=== PATIENT | female | born 2000 | race Caucasian/White ===

== ENCOUNTER 2023-05-24 12:52 | Outpatient (CLI) | payer OTHER, SELFPAY ==
--- OUTSIDE RECORDS SUMMARY | 2023-05-24 12:56 | XMS_ITS | Patient Health Record ---
Author Name Unknown Organization [facility] S Address [address] [phone] Care Team Providers Care Tie Mill Operator Name Role Phone ONE TIME ONLY Primary Care Provider Unavailabl e REASON FOR REFERRAL No Information MEDICATIONS Medication SIG (Take, Route, Fr equency, Duration) Notes Start Date End Date Status ZyrTEC Allergy 10 MG 1 tab Oral qd Active Omeprazole 20 MG 1 cap(s) orally once a day for 30 day(s) Active Diflucan 150 MG 1 tab(s) orally once , may repeat in 1 week if needed. 06/03/2020 Acti ve IMMUNIZATIONS Vaccine Route Administration Date Status Comme nts DTaP (2 mos through 6 yrs) Unknown 2000 Administe red DTaP (2 mos through 6 yrs) Unknown 02/09/2001 Administe red DTaP (2 mos through 6 yrs) Unknown 04/19/2001 Administe red DTaP (2 mos through 6 yrs) Unknown 01/11/2002 Administe red DTaP (2 mos through 6 yrs) Unknown 03/04/2006 Administe red DTaP (2 mos through 6 yrs) Unknown 05/12/2013 Administe red Hepatitis A 12 mo through 18 yrs Unknown 2000 Adm inistered Hepatitis A 12 mo through 18 yrs Unknown 02/09/2001 Adm inistered Hepatitis A 12 mo through 18 yrs Unknown 04/19/2001 Adm inistered Hepatitis A 12 mo through 18 yrs Unknown 05/06/2011 Adm inistered Hib Unknown 2000 Administered Hib Unknown 2000 Administered Hib Unknown 01/11/2001 Administered Hib Unknown 02/09/2001 Administered Hib Unknown 04/19/2001 Administered IPV Unknown 2000 Administered IPV Unknown 02/09/2001 Administered IPV Unknown 04/19/2001 Administered IPV Unknown 01/10/2002 Administered MMR Unknown 03/04/2006 Administered Pneumococcal 13 (Prevnar) Unknown 02/09/2001 Administer ed Pneumococcal 13 (Prevnar) Unknown 04/19/2001 Administer ed Pneumococcal 13 (Prevnar) Unknown 07/12/2001 Administer ed Pneumococcal 13 (Prevnar) Unknown 04/11/2002 Administer ed Varicella Unknown 04/11/2002 Administered Varicella Unknown 05/19/2010 Administered SOCIAL HISTORY Tobacco Use: Social History Observation Description Date Smoking Status WARNING: Information temporarily unavailable Sex Assigned At : Social History Observation Description Sex Assigned At Unknown Tobacco Status Question Answer Notes I am: never smoker Do you use other forms of tobacco? No PLAN OF TREATMENT No Information Insurance Providers Payer Name Payer Address Payer Phone Subscriber Number Group Number Insured Name Patient Relationship to Insured Coverage Start Date Coverage End Date [facility] [address] [address] [place] [phone] [id number] 2S Jennifer Tena Self - patient is the insured 0 MEDICATIONS ADMINISTERED Medication Instructions Date of Administration Dosage Notes Rocephin (Ceftriaxone) 06/03/2020 250 mg
--- NOTE | 2023-05-24 13:00 | CRLHL7_ITS ---
For Patients: As a result of the Century Cures Act, medical imaging exams and procedure reports are released immediately into your electronic medical record. You may view this report before your referring provider. If you have questions, please contact your health care provider. INDICATION: Limited care COMPARISON: none TECHNIQUE: Real time hurley scale imaging of the fetus was performed. FINDINGS: Sonographic imaging demonstrates a single living intrauterine gestation. Fetus demonstrates a regular cardiac rate of 149 beats per minute. Fetus has a vertex position. The placenta lies anteriorly. Amniotic fluid volume appears normal and there is a single deepest vertical pocket: 5.4 cm. The estimated weight is 2381gm which lies at the 63rd %. BPD 80th percentile. HC 37th percentile. AC 86th percentile. FL 17th percentile. The HC/AC ratio measures 1.00 range (0.94-1.11). IMPRESSION: Sonographic gestational age 34 weeks 2 days and sonographic due date 07/03/2023. Sonographic age 5 days ahead of the clinical age. Estimated weight 63rd percentile. Abdominal circumference 86th percentile. Dictated by David Velazquez MD @ 05/25/2023 12:29:30 PM (Electronically Signed)
== END 2023-05-24 12:53 | disposition home or self-care (01) ==
LOC: US 12:54
PROVIDERS: PCP Family Medicine; Visit Provider Advanced Practice Midwife
DX: Z34.93 Encounter for supervision of normal pregnancy, unspecified, third trimester (principal); Z3A.34 34 weeks gestation of pregnancy
CPT/HCPCS: 76815; 80306; 86703; 86803; 86850; 86900; 86901; 87086; 87340; 87491; 87591

== ENCOUNTER 2023-05-24 14:31 | Outpatient (CLI) | payer OTHER, SELFPAY ==
[2023-05-24 22:25] LABS: Chlamydia DNA Amplified* NOT DETECTED (No Detected); GC DNA Amplified* NOT DETECTED (No Detected)
== END 2023-05-24 14:32 | disposition home or self-care (01) ==
PROVIDERS: PCP Family Medicine; Visit Provider Advanced Practice Midwife
DX: Z34.93 Encounter for supervision of normal pregnancy, unspecified, third trimester (principal); Z3A.33 33 weeks gestation of pregnancy
CPT/HCPCS: 80306; 86592; 86703; 86762; 86787; 86803; 86850; 86900; 86901; 87086; 87340; 87491; 87591

== ENCOUNTER 2023-06-03 08:02 | Outpatient (CLI) | payer OTHER, SELFPAY ==
--- OUTSIDE RECORDS SUMMARY | 2023-06-05 10:55 | XMS_ITS | Patient Health Record ---
Author Name Unknown Organization [facility] S Address [address] [phone] Care Team Providers Care Draw Press Operator Name Role Phone ONE TIME ONLY [...] Insured Coverage Start Date Coverage End Date [facility] [address] [address] [place] [address] [id number] 2S Jennifer Tena Self - patient is the insured 0 MEDICATIONS ADMINISTERED Medication Instructions Date of Administration Dosage Notes Rocephin (Ceftriaxone) 06/03/2020 250 mg
== END 2023-06-03 08:03 | disposition home or self-care (01) ==
LOC: NFLDREF 06-05 10:54
PROVIDERS: PCP Family Medicine; Referring Provider Family Medicine; Visit Provider Advanced Practice Midwife
DX: Z34.90 Encounter for supervision of normal pregnancy, unspecified, unspecified trimester (principal)
CPT/HCPCS: 82951; 82952

== ENCOUNTER 2023-06-29 11:30 | Outpatient (CLI) | payer OTHER, SELFPAY ==
--- OUTSIDE RECORDS SUMMARY | 2023-07-01 12:15 | XMS_ITS | Patient Health Record ---
Author Name Unknown Organization [facility] S Address [address] [phone] Care Team Providers Care Air Tool Operator Name Role Phone ONE TIME ONLY [...] Insured Coverage Start Date Coverage End Date [facility] [address] [address] [place] [phone] [id number] 2S Jennifer Tena Self - patient is the insured 0 MEDICATIONS ADMINISTERED Medication Instructions Date of Administration Dosage Notes Rocephin (Ceftriaxone) 06/03/2020 250 mg
== END 2023-06-29 11:31 | disposition home or self-care (01) ==
LOC: NFLDREF 07-01 12:14
PROVIDERS: PCP Family Medicine; Referring Provider Family Medicine; Visit Provider Advanced Practice Midwife
DX: O09.33 Supervision of pregnancy with insufficient antenatal care, third trimester (principal); Z3A.38 38 weeks gestation of pregnancy
CPT/HCPCS: 87081; 87653

== ENCOUNTER 2023-07-19 12:53 | Inpatient (IN) | payer OTHER, SELFPAY ==
[2023-07-19] VITALS (47 sets, daily range): BP systolic 107–143; BP diastolic 55–95; PULSE 53–90; RESP 16; TEMP 36.7–36.8; O2SAT 85–100; BMI 29.8
--- OUTSIDE RECORDS SUMMARY | 2023-07-19 12:56 | XMS_ITS | Patient Health Record ---
Author Name Unknown Organization [facility] S Address [address] [phone] Care Team Providers Care Beveler Name Role Phone ONE TIME ONLY Primary [...] Insured Coverage Start Date Coverage End Date [facility] [address] [address] [place] [address] [id number] 2S Jennifer Tena Self - patient is the insured 0 MEDICATIONS ADMINISTERED Medication Instructions Date of Administration Dosage Notes Rocephin (Ceftriaxone) 06/03/2020 250 mg
--- NOTE | 2023-07-19 14:34 | P.LDBA_ITS ---
Subjective History of Present Illness Date Seen: 07/19/23 Narrative: Patient is being admitted to Labor and Delivery for postdates induction. She is a 22 year old at 41.0 weeks gestation. Her full history and physical was dictated by Talisha Saeed CNM on 06/29/23. Please see this for details. On cervical exam she was 3-4/90%/-1. Options were reviewed including Cytotec, Pitocin, and AROM. She would like to proceed with Pitocin induction and may consider AROM augmentation if needed. She states that she will likely opt for an epidural for pain management. Specific Issues/Plans : Jaden Will decline blood transfusion d/t covid vaccination except in emergency 06/29 H & P done by Talisha Saeed 1. Late and limited PNC (33.2 weeks) 05/24 UDS neg 2. Smoker 3. Hx herpes. Has had 2 outbreaks in . Has Valtrex prescription. 4. Hx of depression. feels it was situational. 5. FOB's nephew has downs syndrome. [id number]: neg 6. Abnormal 1 hr (160). Passed 3 hour (3/4 numbers) COVID: declines Flu: TDAP: 32wk Mental Health: 05/24/2023 OB - Problem Based A/P Additional Plan (1) Encounter for induction of labor: Status: Acute (2) Limited care: Status: Acute (3) Late care: Status: Acute (4) Smoking: Status: Acute (5) Genital herpes: Status: Acute Plan ASSESSMENT:? at 41.0 weeks gestation? GBS negative? Uncomplicated ? Postterm IOL? ?? PLAN:? 1. Reviewed risks and benefits of IOL with pitocin vs cytotec vs AROM. Pt prefers Pitocin. AROM augmentation if needed.? 2. Candidate for analgesia of choice. Planning epidural. Can get epidural when desires.? 3. Anticipate ? 4. Place IV 5. Continuous monitoring per Pitocin protocol.? Delivery/Labor/Induction Plan Plan: induction Induction method: per pitocin protocol OB Result Labs Blood Type: A (+) positive GBS Status: negative OB Exam Physical Exam Vital signs: Temp Pulse Resp BP Pulse Ox 98.2 F 74 16 124/92 H 99 07/19/23 13:09 07/19/23 13:09 07/19/23 13:09 07/19/23 13:09 07/19/23 13:10 Narrative: Psychiatric:? Alert and oriented x3? HEENT:? Normocephalic, atraumatic? Neck:? Supple without adenopathy or thyromegaly? Lungs:? Clear to auscultation bilaterally? Heart:? Regular rate and rhythm, no murmur, rub or gallop? Abdomen:? Soft, nontender, and gravid? Extremities:? No edema or erythema? Detailed Labor and Delivery Exam Patient Gravid: Yes Dilation (cm): 4 Effacement (%): 90 Cervix position: mid Contraction Frequency: irregular Tachysystole: No Contraction intensity: Mild Fetus (Single) Station: -1 Amniotic Membrane Status: intact Heart Rate Baseline: 140 Monitor Accelerations: Present Monitor Decelerations: None Invoicing Machine Operator Variability: Moderate (6-25) (periods of minimal variability )
[2023-07-19] MEDS: OXYTOCIN 30 unit/500 ML in NS 30 UNIT/500 ML BAG IVPB (15:14)
[2023-07-19] MEDS: LACTATED RINGERS 1000 ML 1,000 ML 124 ML IV (15:14)
--- NOTE | 2023-07-19 17:30 | P.OBPN_ITS ---
Subjective Date Seen: 07/19/23 Narrative: Jennifer has been on IV Pitocin titration for about 2 hours now. She is feeling some tightening but not having any pain with contractions. Reviewed options of continuing with Pitocin titration or augmenting with AROM. Risks of AROM reviewed. She would like to proceed with AROM at this time. Scant amount of clear fluid mixed with bloody show noted with rupture. Objective Vital Signs: Last Vital Signs Temp 98.2 F 07/19/23 13:09 Pulse 67 07/19/23 16:54 Resp 16 07/19/23 13:09 BP 123/80 07/19/23 16:54 Pulse Ox 99 07/19/23 13:10 Pelvic Exam Dilation (cm): 4 Effacement (%): 90 Station: -1 Contractions Monitor mode: External Contraction Frequency: 2-7 Contraction pattern: Irregular Contraction intensity: Mild Assessment Assessment: induction ongoing Station: -1 Amniotic Membrane Status: AROM Status: Category l Heart Rate Baseline: 130 Nursing Home Variability: Moderate (6-25) Monitor Accelerations: Present Monitor Decelerations: None Plan Plan: Continue with Pitocin titration. AROM with clear fluid. Anticipate NVD.
[2023-07-19] MEDS: LIDOCAINE 2% (PF) 5 ML VIAL EPIDURAL (18:03)
[2023-07-19] MEDS: ROPIVACAINE 0.2% 100 ml 100 ML 12 MG EPIDURAL (18:28)
[2023-07-19] MEDS: fentaNYL 250 MCG/5 ML inj 100 MCG EPIDURAL (18:30)
--- NOTE | 2023-07-19 18:42 | PM.ANBPRC ---
[facility] Medical History Family history of Downs syndrome ?Z82.79 - Family history of other congenital malformations, deformations and chromosomal abnormalities (ICD-10) Depression ?F32.A - Depression, unspecified (ICD-10) Genital herpes ?A60.00 - Herpesviral infection of urogenital system, unspecified (ICD-10) Complete molar ?O02.0 - Blighted ovum and nonhydatidiform mole (ICD-10) Surgical History H/O dilation and curettage ?Z98.890 - Other specified postprocedural states (ICD-10) Family History Maternal Grandmother Thyroid disease Osteoporosis Endometriosis Maternal Grandfather Thyroid disease High blood pressure Paternal Grandmother Diabetes Family/Other Coagulation disorder Sister Thyroid disease Social History Narrative: SOCIAL Education: high school Work: unemployed Partner: Abdias Morales - but not changed name yet: [employer]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 Culture or yazdanism beliefs: denies RISK FACTORS Exercise Times/wk: house work Depression/Anxiety: situational with molar SARAH: 2 PHQ 9: 5 Seat Belt Use: Routinely Smoking: pack per day Alcohol/day: Denies while Caffeine: occasionally Drug Use: Denies present, high school used THC Chicken Pox: vaccinated MRSA: Denies What is your current living situation?: I presently have a place to live Problems where you live: no known problems In the past 12 months, utilities in danger of being shut off: no In past 12 months, lack of transportation kept you from medical appts, meetings, work, or getting things needed for daily living: no In the past 12 mos, have been you worried that your food would run out before you had money to buy more?: never true In the past 12 mos, the food you bought just didn't last and you didn't have money to buy more?: never true Smoking Status: Current every day smoker How often does anyone, including family, friends and others, physically hurt you: never How often does anyone, including family, friends and others, insult or talk down to you: never How often does anyone, including family, friends and others, threaten you with harm: never How often does anyone, including family, friends and others, scream or curse at you: never Little interest or pleasure in doing things: several days Feeling down, depressed, or hopeless: not at all Meds Home Medications and Allergies Home Medications Medication Instructions Recorded Confirmed Type cetirizine 10 mg tablet (Zyrtec) 10 mg PO QDAY PRN 08/06/22 07/19/23 History Allergies Allergy/AdvReac Type Severity Reaction Status Date / Time No Known Drug Allergies Allergy Verified 07/16/23 09:50 Results Vital Signs Vital Signs: Last Vital Signs Temp 98.2 F 07/19/23 13:09 Pulse 70 07/19/23 18:40 Resp 16 07/19/23 13:09 BP 107/59 L 07/19/23 18:40 Pulse Ox 99 07/19/23 18:40 Weight: 89.046 kg Height: 172.72 cm Anesthesia Procedures Epidural Insertion Patient Location: OB Start Time: 18:00 Stop Time: 19:00 Start Date: 07/19/23 Stop Date: 07/19/23 Reason for Block: primary anesthetic Patient Position: sitting Performed By: Kurtis Palma Preanesthetic Checklist: IV checked, risks and benefits discussed, surgical consent, monitors and equipment checked, pre-op evaluation, timeout performed and anesthesia consent Prep: chlorhexidine gluconate Monitoring: blood pressure monitoring, lunchroom monitor, continuous pulse oximetry and heart rate Approach: midline Vertebral Space: lumbar (1-5) Needle Type: Tuohy needle Injection Technique: continuous catheter Needle gauge: 17 Needle Length (cm): 10 cm Needle Insertion Depth (cm): 6 Catheter Gauge: 19 Catheter Type: multi-orifice Catheter at skin depth (cm): 12 Test Dose Result: negative and lidocaine 1.5% with epinephrine 1 to 200,000 Events: other
[2023-07-19] MEDS: LACTATED RINGERS 1000 ML 1,000 ML 121 ML IV (19:16)
[2023-07-19] MEDS: OXYTOCIN 30 unit/500 ML in NS 30 UNIT/500 ML BAG 300 UNIT IVPB (21:13)
--- NOTE | 2023-07-19 22:03 | W.PM.VAGDE_ITS ---
OB Procedure Vag Delivery Mother Details Mother Details: The patient is a 22 year-old, 2, Para 0, admitted on 07/19/23 at 41.0 weeks gestation. : 2 Para: 1 Weeks Gestation: 41.0 Admission Date: 07/19/23 Additional Details Amniotic Membrane Status: AROM Amniotic Membrane Rupture Date: 07/19/23 Amniotic Membrane Rupture Time: 17:13 Amniotic Membrane Fluid Description: Clear Analgesia/Anesthesia Type: Epidural Waterbirth: No Pitcoin: Yes Intrapartal Events: Labor Induction Induction Method: per pitocin protocol Delivery augmentation: rupture of membranes Labor Onset: 17:13 Complete: 20:15 Pushin:15 Heart: heart tones during second stage were category II. Baseline 125 with accels, intermittent variable decels and moderate variability. Delivery Details Delivery Date: 07/19/23 Delivery Time: 21:11 Route of delivery: Infant Gender: Female Infant Viability: Alive; Heart Rate Present Position at Delivery: OA Delivery Details: Patient was admitted for postdates IOL and was induced with IV pitocin titration and augmentated with AROM. AROM noted at 1713 with clear fluid. Patient was complete at 2014 and pushing at 2014. of a viable female at 2110. Vertex d elivered OA. No shoulder. Loose nuchal cord x1 easily reduced on the perineum. Body delivered easily and without incident. Infant passed to mothers abdomen with a vigorous cry. Cord was clamped and cut at > 5 minutes. APGARS were 7 at one minute and 9 at five minutes respectively. Mouth was bulb suctioned. Intact placenta with a 3 vessel cord delivered spontaneously at 2118 with trailing membranes. The membranes did tear and a manual removal was attempted. Some membranes were removed with this but it was felt that there was still some remaining. Dr. Wright was called to evaluate and she did find some membranes but no additional retained products. Fundus firm with massage but did continue to have oozing with every funadal massage. She had pitocin running and was given rectal cytotec and IV TXA before the bleeding remained at an acceptable. 1st laceration identified and not repaired after shared decision making. It was hemostatic and well approximated. QBL 520 cc. Mother and baby stable; mother plans to breastfeed. Infant weight 8lb 13oz.? 1 Minute Interval Total Score: 7 5 Minute Interval Total Score: 9 Additional Details Shoulder Dystocia: No Placenta Delivery Time: 21:19 Placental Delivery Description: Spontaneous (manual exploration for questionable retained membranes, abx ordered.) Procedure Done: Global Blood Loss: 520 Laceration: Perineal - 1st Degree (not repaired) Episiotomy Description: None Blood Loss Measurement Type: QBL Bakri Used: No Sponge/Need Count Correct: Yes Cord Vessel Description: 3 Vessels, Nuchal Cord, Loose and Reduced Event Summary Status: Mother and infant were stable after delivery. Disposition: floor
--- NOTE | 2023-07-19 22:29 | PM.OBCN1 ---
OB - CN: HPI Date of Consult Date Seen: 07/19/23 Patient: [facility] Patient Consult date: 07/19/23 Requesting Physician: Grace Cao CNM Primary Care Provider: Melani Salinas MD Consult Narrative Narrative: The patient is a 22 year old now P1 woman who is s/p at 41 weeks gestation. She had spontaneous delivery of the placenta, then was noted to have trailing membranes. Grace Cao CNM, attended her , and was unable to remove the membranes. The placenta itself appeared intact. She then consulted me for removal. At the time that I examined the patient, she was less than our from placental delivery. She was having an appropriate amount of bleeding. She does have an epidural for pain control. She has already her daughter. History History 2 Elective abortions Para 0 Spontaneous abortions Hx # Term Pregnancies Ectopic pregnancies Hx # Pregnancies Multiple births Number of Living Children 0 Past Pregnancies Del. Date GA/Weeks Outcome Route wt Inf Gender Labor Lgth Anesthesia Location Provider Compli Unknown Delivery Date: Last Updated by: Grace Cao CNM M[place] in 2018; D&C Labs Blood type: A (+) positive GBS status: negative OB Labs: Lab Assessment Start: 07/19/23 13:27 Freq: ONCE Status: Active Protocol: PC.OBGBS Activity Type Activity Date Activity User E-sign Co-sign Detail Recorded Client Recorded Date Recorded By Document 07/19/23 13:31 MELINA [id number] 07/19/23 13:32 MELINA 07/19/23 13:31 Lab Assessment GBS Status negative GBS Additional Criteria None Is Patient Allergic to Penicillin? No No Treatment Needed OK Are Labs Available Yes Maternal Blood Type A Maternal RH Factor Positive Evaluate Maternal Rubella Immune Status Immune Hepatitis B Surface Antigen Negative Maternal HIV Status Negative Maternal Syphillis (RPR) Status Negative [facility] Medical History Family history of Downs syndrome ?Z82.79 - Family history of other congenital malformations, deformations and chromosomal abnormalities (ICD-10) Depression ?F32.A - Depression, unspecified (ICD-10) Genital herpes ?A60.00 - Herpesviral infection of urogenital system, unspecified (ICD-10) Complete molar ?O02.0 - Blighted ovum and nonhydatidiform mole (ICD-10) Surgical History H/O dilation and curettage ?Z98.890 - Other specified postprocedural states (ICD-10) Family History Maternal Grandmother Thyroid disease Osteoporosis Endometriosis Maternal Grandfather Thyroid disease High blood pressure Paternal Grandmother Diabetes Family/Other Coagulation disorder Sister Thyroid disease Social History Narrative: SOCIAL Education: high school Work: unemployed Partner: Abdias Morales - but not changed name yet: [employer]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 Culture or oriental orthodox beliefs: denies RISK FACTORS Exercise Times/wk: house work Depression/Anxiety: situational with molar SARAH: 2 PHQ 9: 5 Seat Belt Use: Routinely Smoking: pack per day Alcohol/day: Denies while Caffeine: occasionally Drug Use: Denies present, high school used TH[employer] Chicken Pox: vaccinated MRSA: Denies What is your current living situation?: I presently have a place to live Problems where you live: no known problems In the past 12 months, utilities in danger of being shut off: no In past 12 months, lack of transportation kept you from medical appts, meetings, work, or getting things needed for daily living: no In the past 12 mos, have been you worried that your food would run out before you had money to buy more?: never true In the past 12 mos, the food you bought just didn't last and you didn't have money to buy more?: never true Smoking Status: Current every day smoker How often does anyone, including family, friends and others, physically hurt you: never How often does anyone, including family, friends and others, insult or talk down to you: never How often does anyone, including family, friends and others, threaten you with harm: never How often does anyone, including family, friends and others, scream or curse at you: never Little interest or pleasure in doing things: several days Feeling down, depressed, or hopeless: not at all Meds Home Medications and Allergies Home Medications Medication Instructions Recorded Confirmed Type cetirizine 10 mg tablet (Zyrtec) 10 mg PO QDAY PRN 08/06/22 07/19/23 History Allergies Allergy/AdvReac Type Severity Reaction Status Date / Time No Known Drug Allergies Allergy Verified 07/16/23 09:50 OB - H&P: Exam Physical Exam: Vital signs: Temp Pulse Resp BP Pulse Ox 98.2 F 54 L 16 125/79 89 07/19/23 13:09 07/19/23 22:20 07/19/23 13:09 07/19/23 22:20 07/19/23 19:36 Narrative: Physical exam: Vitals as noted above. General: No acute distress, trembling consistent with early state Psych: Alert and oriented x 3, full affect HEENT: Normocephalic, atraumatic Abdomen: Fundus is firm Pelvic exam: Small first-degree left sulcal laceration. Procedure: Manual extraction of placental membranes A for oblique explained the exploration of the cervix and uterus the patient, and verbal consent was obtained. Sterile gloves were used for this procedure. A speculum was placed. Ring forceps were used to follow around the entire circumference of the cervix. No membranes were easily visualized, though blood was obscuring the view at times. Then, with a hand on the fundus through the maternal abdomen, I inserted my hand into the lower uterine segment and palpated circumferentially. I was able to find a very small piece of placental membranes in the upper endocervix or lower uterine segment. Uterine tone was excellent. OB - CN: A/P Assessment and Plan (1) Retained placenta or membranes: Status: Acute Assessment and Plan: Very small amount of membranes were manually removed. I did not explore the uterus to the level of the fundus, given the excellent uterine tone and the complete appearance of the placental disc. I did recommend continued monitoring of maternal bleeding and cefazolin for prophylaxis against infection.
[2023-07-19] MEDS: CEFAZOLIN 1 GM inj IVP (22:44)
[2023-07-19] MEDS: TRANEXAMIC ACID 100 MG/ML INJ 1000 MG IV (22:49)
[2023-07-19] MEDS: miSOPROStoL 800 MCG/4 TABLET PR (22:49)
[2023-07-20] MEDS: IBUPROFEN 600 MG TABLET PO ×3 (01:37→19:21)
[2023-07-20 04:01] VITALS: BP 116/73; PULSE 66; RESP 16; TEMP 37.1; O2SAT 99
[2023-07-20] MEDS: ACETAMINOPHEN 500 MG TABLET 1000 MG PO ×2 (04:29→10:15)
[2023-07-20 07:58] LABS: Hemoglobin* 7.1 gm/dL (12.0-16.0)
--- NOTE | 2023-07-20 07:59 | P.OBPN_ITS ---
OB - PN:Subj Subjective Date Seen: 07/20/23 Patient comments OB post-: no complaints Narrative: Jennifer is a 22 y.o. who was admitted to [facility] for induction of labor for post dates. ?She had a NVD complicated by retained membranes, manually removed.?The patient feels well. The pain is well controlled with current medications. ?She has no new complaints. ?She is breast feeding and reports things are going well.? the patient has done well.? Vitals have been stable.? She has remained afebrile.? Has a good appetite, is tolerating a general diet. ?She is voiding without difficulty.? She is passing gas and has not had a bowel movement.? She is ambulating and denies any dizziness.?Hemoglobin this morning is 7.1. Patient currently asymptomatic. Has small amount of rubra lochia. OB - PN: Obj Exam 2 Physical Exam: Vital signs: Temp Pulse Resp BP Pulse Ox O2 Del Method 98.8 F 66 16 116/73 99 Room Air 07/20/23 04:01 07/20/23 04:01 07/20/23 04:01 07/20/23 04:01 07/20/23 04:01 07/20/23 04:01 Narrative: GENERAL APPEARANCE:? normal affect, alert, no distress MOOD:? appropriate CHEST:? clear to auscultation HEART:? regular rate and rhythm ABDOMEN:? soft, non-tender the uterine fundus is at Umbilicus, Midline and is appropriate for the stage of recovery. PERINEUM:? mild edema of the perineum, there is a Perineal Laceration,?1st degree that is healing well. Small amount of rubra lochia. EXTREMITIES:? normal and no edema Hgb 7.1 gm/dL (12.0-1 6.0) L* 07/20/23 07:48 OB - PN: Obj Data Labs Labs: Laboratory Results - last 24 hr 07/20/23 07:48 Hgb 7.1 L* OB - PN: A/P Delivery Assessment and Plan (1) care and examination immediately after delivery: Status: Acute (2) Lactating mother: Status: Acute (3) Retained placenta or membranes: Status: Acute (4) Normal vaginal delivery: Status: Acute (5) Anemia due to acute blood loss: Status: Acute Plan Comments: Problems: Anemia plan: Routine care , may see if needed Anemia. Hgb 7.1. Iron supplement ordered orally every other day. Continue to monitor for symptoms. Bleeding is appropriate at this time. Anticipate discharge tomorrow.
[2023-07-20] MEDS: DOCUSATE SODIUM 100 MG CAPSULE PO (08:37)
[2023-07-20 09:19] VITALS: BP 105/69; PULSE 62; RESP 20; TEMP 36.6; O2SAT 97
[2023-07-20] MEDS: FERROUS SULFATE 325 MG TABLET PO (09:26)
[2023-07-20 11:59] VITALS: BP 105/68; PULSE 68; RESP 20; TEMP 36.8; O2SAT 98
[2023-07-20 15:45] VITALS: BP 110/72; PULSE 70; RESP 18; O2SAT 98
[2023-07-20 19:00] VITALS: BP 115/81; PULSE 70; RESP 18; TEMP 36.8; O2SAT 98
[2023-07-21 03:30] VITALS: BP 112/74; PULSE 69; RESP 18; TEMP 36.8; O2SAT 97
[2023-07-21 08:13] VITALS: BP 117/79; PULSE 67; RESP 16; TEMP 36.9; O2SAT 98
[2023-07-21] MEDS: IBUPROFEN 600 MG TABLET PO (08:28)
--- NOTE | 2023-07-21 09:57 | P.DS_ITS ---
DS: Providers Provider Date Seen: 07/21/23 Date of admission: 07/19/23 12:53 Primary care physician: Melani Salinas MD Admitting Clinician: Grace Cao CNM Attending Physician on discharge: Dong Apple CNM Date of Discharge: 07/21/23 DS: Diagnosis Discharge Diagnosis (1) care and examination immediately after delivery: Status: Acute (2) Lactating mother: Status: Acute Exam Narrative: Exam Narrative: GENERAL APPEARANCE: ?normal affect, alert, no distress MOOD: ?appropriate HEENT: normocephalic, neck supple, full ROM CHEST: ?Symmetrical chest wall movement. ?Normal respiratory effort. ?Clear to auscultation HEART: ?regular rate and rhythm ABDOMEN: ?soft, non-tender. Uterine fundus is firm, at Umbilicus, Midline and is appropriate for the stage of recovery. ?Bowel sounds present. PERINEUM: ?mild edema of the perineum, there is a 1st degree laceration that is healing well. EXTREMITIES: ?normal and no edema Const: Vital Signs, click to edit/add: Vital Signs - 24 hr 07/20/23 11:59 07/20/23 15:45 07/20/23 19:00 Temperature 98.2 F 98.2 F Pulse Rate [Blood Pressure Cuff] 68 70 70 Respiratory Rate 20 18 18 Blood Pressure [Le ft Arm] 105/68 110/72 115/81 Pulse Oximetry 98 98 98 Oxygen Delivery Me thod Room Air Room Air Room Air 07/21/23 03:30 07/21/23 08:13 Temperature 98.3 F 98.4 F Pulse Rate [Blood Pressure Cuff] 69 67 Respiratory Rate 18 16 Blood Pressure [Le ft Arm] 112/74 117/79 Pulse Oximetry 97 98 Oxygen Delivery Me thod Room Air Room Air Documenting provider has reviewed patient's vital signs: yes OB - DS: Summary Hospital Course Hospital Course: The patient is a 22 year old G 2 P 1 at 41.0 weeks gestation that was admitted to the Center on 07/19/23 for induction of labor. She had an uncomplicated vaginal delivery. She delivered a viable female infant. She is breast feeding. the patient has done well. Her pain is well controlled with current medications.? She has no new complaints.? Vitals have been stable. She has remained afebrile. She is voiding without difficulty. She is passing gas and has had a bowel movement. She is ambulating and denies any dizziness. She is unsure what she is planning for control.??? Peripartum Data delivery method: Vaginal Laceration description: Perineal - 1st Degree complications: none Infant Gender: Female Infant Discharge Plan: Home Status at Discharge Functional status at discharge: independent ambulation Overall status at discharge: patient is progressing back to baseline Time Spent with Patient Time attestation: Total time spent providing and/or coordinating discharge services: Time spent: Less than 30 minutes Discharge Plan Discharge Disposition: Home, Self-Care Date of Admission: 07/19/23 12:53 Attending Provider on Discharge: Dong Apple Primary Care Provider: Melani Salinas Condition: Stable Anticipated Discharge Date/Time: 07/21/23 12:00 Discharge Medications: New docusate sodium 100 mg Capsule 100 mg PO DAILY Qty: 60 0RF Rx Instructions: Take 1-2 tablets daily as needed for constipation. ferrous sulfate 325 mg (65 mg iron) Tablet 325 mg PO Q OTHER DAY Qty: 90 0RF ibuprofen 600 mg Tablet 600 mg PO Q6H PRNQty: 60 0RF Continued cetirizine [Zyrtec] 10 mg tablet 10 mg PO QDAY PRN Discontinued valacyclovir [Valtrex] 500 mg tablet 500 mg PO BID Qty: 60 1RF Discharge Orders: Discharge Order (Routine); Ordered 07/21/23 Ordered By: Dong Apple Patient Education: OB Over the Counter Medication Information, OB Vaginal/Breast Feeding Additional Instructions: Discharge instructions were reviewed with the patient including signs and symptoms of infection and home going medications Nothing vaginally for 6 weeks: no tampons or intercourse Do not drive while taking narcotic pain medication(s) Off Work or School for 6 weeks 2-week visit: discuss infant feeding concerns, review control options and screen for anxiety/depression. 6-week visit for an annual exam. consultation services are available to all mothers and babies for the first year after delivery.? To make an appointment, please call [phone]. Activity Level: Activity as Tolerated Discharge Diet: Regular Follow Up Appointments: [facility] [Provider Group] Forms: [employer] Info Instructions
== END 2023-07-21 12:00 | disposition home or self-care (01) | DRG 806 ==
PROVIDERS: Admitting Provider Advanced Practice Midwife; PCP Family Medicine; Visit Provider Advanced Practice Midwife
DX: O48.0 Post-term pregnancy (principal); D62 Acute posthemorrhagic anemia; Z37.0 Single live birth; O98.32 Other infections with a predominantly sexual mode of transmission complicating childbirth; O73.0 Retained placenta without hemorrhage; O90.81 Anemia of the puerperium; A60.00 Herpesviral infection of urogenital system, unspecified; O70.0 First degree perineal laceration during delivery; Z3A.41 41 weeks gestation of pregnancy
CPT/HCPCS: 01967; 36415; 85018; A9270; J0690; J2371; J2795; J3010; J7120

== ENCOUNTER 2024-08-29 12:50 | Outpatient (CLI) | payer OTHER, SELFPAY ==
--- OUTSIDE RECORDS SUMMARY | 2024-08-29 12:53 | XMS_ITS | Referral Summary ---
Author Organization [facility] Address [address] [place] [address] Care Team Providers Care Management Lead Name Role Phone Rozinagarcía Dia PINTO CLAM GROWER Primary Care Provider + Allergies No known active allergies Medications cetirizine (ZYRTEC) 10 MG tablet Take 1 tablet (10 mg) by mouth every evening 30 tablet 1 8 Active Vit-Fe Fumarate-FA ( MULTIVITAMIN W/IRON) 27-0.8 MG tablet Take 1 tablet by mouth daily Active Active Problems Problem Noted Date Diagnosed Date Encounter for triage in patient 023 HSV (herpes simplex virus) infection 10/22/2020 Encounter for insertion of Mirena IUD 02/03/2018 Overview (02/03/2018): Due out 01/2023 Molar 01/20/2018 Blood type A+ Immunizations Name Administration Dates Next Due DTAP (<7y) 05/12/2013, 6,01/11/2002,04/19/2001, 02/09/2001,2000 HEPATITIS A (PEDS 12M-18Y) 05/06/2011,,04/19/2001,02/09/2001, 2000 HIB (PRP-T) 01/11/2002 HIB(PRP-OMP)(PedvaxHIB) 01/11/2001,2000 HepB, Unspecified 04/11/2002 Hepatitis B, Peds 02/09/2001,2000 Historic Hib Hib-titer 04/19/2001,02/09/2001, MMR 03/04/2006,01/11/2002 Meningococcal ACWY (Menactra ) 04/21/2017,05/12/2013 Pneumococcal (PCV 7) 04/11/2002,07/12/2001,04/19,02/09/2001 Poliovirus, inactivated (IPV) 03/04/2006 ,01/11/2002,04/19/2001,02/09/2001, 2000 TDAP Vaccine (Adacel) 05/12/2013 Varicella 05/19/2010,04/11/2002 Social History Tobacco Use Types Packs/Day Years Used Date Smoking Tobacco: Every Day Cigarettes 0.5 3 Smokeless Tobacco: Never Tobacco Cessation:Ready to Q uit: Not Asked; Counseling Given: Not Answered Alcohol Use Standard Drinks/Week Comments No 0 (1 standard drink = 0.6 oz pur e alcohol) PHQ-2 Answer Date Recorded PHQ-2 Score 1 10/22/2020 Adolescent Education Answer Date Record ed Getting School Help Needed Not on file 07/02 Comments No Sex and Gender Information Value Date Recorded Sex Assigned at Not on file Legal Sex Female 10:11 AM CDT Gender Identity Not on file Sexual Orientation Not on file Last Filed Vital Signs Vital Sign Reading Time Taken Comments Blood Pressure 115/71 03/19/2023 10:11 PM CDT Pulse 70 10/22/2020 5:07 PM TELEPHONE SWITCHBOARD OPERATOR Temperature 37.1 C (98.8 F) 03/19/2023 10:11 PM CDT Respiratory Rate 16 03/19/2023 10:11 PM CDT Oxygen Saturation 97% 03/19/2023 10:11 PM CDT Inhaled Oxygen Concentration - - Weight 81.6 kg (180 lb) 10/22/2020 5:07 PM TELEPHONE SWITCHBOARD OPERATOR Height 170.2 cm (5' 7) 10/22/2020 5:07 PM TELEPHONE SWITCHBOARD OPERATOR Body Mass Index 28.19 10/22/2020 5:07 PM TELEPHONE SWITCHBOARD OPERATOR Plan of Treatment Not on file Procedures Procedure Name Priority Date/Time Associated Diagnosis Comments HEPATITIS C SCREEN REFLEX TO HCV RNA QUANT AND GENOTYPE Routine 10/22/2020 5:52 PM TELEPHONE SWITCHBOARD OPERATOR Need for hepatitis C screening test CHLAMYDIA TRACHOMATIS PCR Routine 01/12/2018 2:38 PM CDT , incidental HIV ANTIGEN ANTIBODY COMBO Routine 01/12/2018 2:38 PM CDT , incidental from Last 3 Months or Most Recently Relevant to Health Maintenance Results * Hepatitis C Screen Reflex to HCV RNA Quant and Genotype (10/22/2020 5:52 PM TELEPHONE SWITCHBOARD OPERATOR) Hepatitis C Antibody Nonreactive NR^Nonre active 10/23/2020 3:18 PM TELEPHONE SWITCHBOARD OPERATOR [facility] Comment: Assay performance characteristics have not been established for newborns, infants, and children Blood specimen (specimen) 10/22/2020 5:52 PM TELEPHONE SWITCHBOARD OPERATOR 10/22/2020 5:53 PM TELEPHONE SWITCHBOARD OPERATOR us Dia Ellison APRN, CNP LAB - BLOOD ORDERABLES F inal Result Performing Organization Address City/[facility]/ZIP Co de Phone Number [facility] [address] [place] [address] * HIV Antigen Antibody Combo (01/12/2018 2:38 PM CDT) HIV Antigen Antibody Combo Nonreactive NR^Nonrea ctive 01/13/2018 1:05 PM CDT [facility] Comment:HIV-1 p24 Ag & HIV-1 /HIV-2 Ab Not Detected Blood specimen (specimen) 01/12/2018 2:38 PM CDT 01/12/2018 2:39 PM CDT us Yana Robles MD LAB - BLOOD ORDERABLES Final Re sult [facility] [address] * Chlamydia trachomatis PCR (01/12/2018 2:38 PM CDT) Specimen Description Urine 01/12/2018 2:40 PM CDT [facility] Chlamydia Trachomatis PCR Negative NEG^Negat geraldo 01/13/2018 12:51 PM CDT [facility] Comment: Negative for C. trachomatis rRNA by water taxi ferry operator mediated amplification. A negative result by water taxi ferry operator mediated amplification does not preclude the presence of C. trachomatis infection because results are dependent on proper and adequate collection, absence of inhibitors, and sufficient rRNA to be detected. Urine specimen (specimen) 01/12/2018 2:38 PM CDT 01/12/2018 2:40 PM CDT us Yana Robles MD LAB - MICRO GENERAL ORDERABLES Final Result Performing Organization Address City/State/[facility] Co de Phone Number [facility] [address] [place] [address], [facility] [id number] [place] [phone] from Last 3 Months or Most Recently Relevant to Health Maintenance Care Teams Management Lead Relationship Specialty Start Date End Date Dia Ellison APRN CNP PCP - General Family Medicine 10/23/20
--- OUTSIDE RECORDS SUMMARY | 2024-08-29 12:53 | XMS_ITS | Encounter Summary ---
Author Organization [facility] Address [address] [place] [address] Care Team Providers Care Patient Transportation Driver Name Role Phone Dia Ellison APRN, CNP Primary Care Provider + Dia Ellison APRN SUPERVISOR TILE AND MOTTLE Unavailable [phone] Dia Ellison APRN SUPERVISOR TILE AND MOTTLE Unavailable [phone] Clinic - [facility] Unavail able Encounter Details Date Type Department Care Team (Late st Contact Info) Description 07/30/2022 [facility] [place] Medical Advice [facility] Health Information Management [address] [facility] [address] [place] [address] [facility] Social History Tobacco Use Types Packs/Day Years Used Date Smoking Tobacco: Every Day Cigarettes Smokeless Tobacco: Never Alcohol Use Standard Drinks/Week Comments No 0 (1 standard drink = 0.6 oz pur e alcohol) PHQ-2 Answer Date Recorded PHQ-2 Score 1 10/22/2020 Comments No Sex and Gender Information Value Date Recorded Sex Assigned at Not on file Legal Sex Female 10:11 AM CDT Gender Identity Not on file Sexual Orientation Not on file documented as of this encounter Plan of Treatment Not on file documented as of this encounter Visit Diagnoses Not on filedocumented in this encounter Care Teams Patient Transportation Driver Relationship Specialty Start Date End Date Dia Ellison APRN CNP PCP - General Family Medicine 10/23/20 Dia Ellison APRN CNP [address] [place] [phone] Assigned PCP 09/26/20 09/25/22 Dia Ellison APRN [facility] Assigned PCP 12/05/22 10/22/23 [facility] - [address] [address] Assigned PCP 11/04/23 12/02/23 documented as of this encounter
--- OUTSIDE RECORDS SUMMARY | 2024-08-29 12:53 | XMS_ITS | Clinical Summary ---
Author Organization [facility] Address [address] [place] [address] Care Team Providers Care Telegraphic Instrument Supervisor Name Role Phone Rozinagarcía Dia PINTO COUNTY MANAGER Primary Care Provider + Allergies No known [...] 2000 TDAP Vaccine (Adacel) 05/12/2013 Varicella 05/19/2010,04/11/2002 Family History Medical History Relation Comments No Known Problems Father Aortic aneurysm Maternal Grandfather Other - See Comments Mother Partial mol ar Thrombosis Other Relation Status Comments Brother 1 Alive Brother 2 Alive Brother 3 Alive Brother 4 Alive Father Alive Maternal Grandfather Mother Alive Other Other multiple family members on maternal side Sister 1 Alive Sister 2 Alive Sister 3 Alive Social History Tobacco Use Types Packs/Day Years [...] PM CDT Pulse 70 10/22/2020 5:07 PM PATIENT SERVICE COORDINATOR Temperature 37.1 C (98.8 F) 03/19/2023 10:11 PM CDT Respiratory Rate 16 03/19/2023 10:11 PM CDT Oxygen Saturation 97% 03/19/2023 10:11 PM CDT Inhaled Oxygen Concentration - - Weight 81.6 kg (180 lb) 10/22/2020 5:07 PM PATIENT SERVICE COORDINATOR Height 170.2 cm (5' 7) 10/22/2020 5:07 PM PATIENT SERVICE COORDINATOR Body Mass Index 28.19 10/22/2020 5:07 PM PATIENT SERVICE COORDINATOR Plan of Treatment Health Maintenance Due Date Last Done Comments ADVANCE CARE PLANNING 2000 NICOTINE/TOBACCO CESSATION COUNSELING Q 1 YR 2000 Pneumococcal Vaccine: Pediatrics (0 to 5 Years) and At-Risk Patients (6 to 64 Years) (1 of 2 - PCV) 2006 04/11/2002, 04/11/2002, 07/12/2001, Additional history exists HPV IMMUNIZATION (1 - 3-dose series) 2015 CHLAMYDIA SCREENING 06/03/2021 06/03/2020, 8 PAP 2021 ANNUAL REVIEW OF HM ORDERS 10/22/2021 10/22/2020 YEARLY PREVENTIVE VISIT 10/22/2021 10/22/2020 DTAP/TDAP/TD IMMUNIZATION (8 - Td or Tdap) 05/12/2023 05/12/2013, 05/12/2013, 03/04/2006, Additional history exists PHQ-2 (once per calendar year) 2023 10/22/2020 COVID-19 Vaccine ( season) 2024 INFLUENZA VACCINE (#1) 2024 RSV VACCINE (1 - 1-dose 75+ series) 2075 HEPATITIS B IMMUNIZATION Completed 002, 02/09/2001, 2000 MENINGITIS IMMUNIZATION Completed 04/21/2017, 05/12 HIV SCREENING Completed 01/12/2018 HEPATITIS C SCREENING Completed 10/22/2020 RSV MONOCLONAL ANTIBODY Aged Out No l onger eligible based on patient's age to complete this topic Procedures Procedure Name Priority Date/Time Associated Diagnosis Comments HEPATITIS C SCREEN REFLEX TO HCV RNA QUANT AND GENOTYPE Routine 10/22/2020 5:52 PM PATIENT SERVICE COORDINATOR Need for hepatitis C screening test CHLAMYDIA TRACHOMATIS PCR Routine 01/12/2018 2:38 PM CDT , incidental HIV ANTIGEN ANTIBODY COMBO Routine 01/12/2018 2:38 PM CDT , incidental from Last 3 Months or Most Recently Relevant to Health Maintenance Results * Hepatitis C Screen Reflex to HCV RNA Quant and Genotype (10/22/2020 5:52 PM PATIENT SERVICE COORDINATOR) Hepatitis C Antibody Nonreactive NR^Nonre active 10/23/2020 3:18 PM PATIENT SERVICE COORDINATOR [facility] Comment: Assay performance characteristics have not been established for newborns, infants, and children Blood specimen (specimen) 10/22/2020 5:52 PM PATIENT SERVICE COORDINATOR 10/22/2020 5:53 PM PATIENT SERVICE COORDINATOR Dia Ellison APRN COUNTY MANAGER LAB - BLOOD ORDERABLES F inal Result Performing Organization Address City/[facility]/ZIP Co de Phone Number [facility] [address] [place] [address] * HIV Antigen Antibody Combo (01/12/2018 2:38 PM CDT) Pathologist [facility] HIV Antigen Antibody Combo Nonreactive NR^Nonrea ctive 01/13/2018 1:05 PM CDT [facility] Comment:HIV-1 p24 Ag & HIV-1 /HIV-2 Ab Not Detected Blood specimen (specimen) 01/12/2018 2:38 PM CDT 01/12/2018 2:39 PM CDT Yana Robles MD LAB - BLOOD ORDERABLES Final Re sult Performing Organization Address [facility] Co de Phone Number [address] * Chlamydia trachomatis PCR (01/12/2018 2:38 PM CDT) Pathologist [facility] Specimen Description Urine 01/12/2018 2:40 PM CDT [facility] Chlamydia Trachomatis PCR Negative NEG^Negat geraldo 01/13/2018 12:51 PM CDT [facility] Comment: Negative for C. trachomatis rRNA by cloth spreader screen printing mediated amplification. A negative result by cloth spreader screen printing mediated amplification does not preclude the presence of C. trachomatis infection because results are dependent on proper and adequate collection, absence of inhibitors, and sufficient rRNA to be detected. Urine specimen (specimen) 01/12/2018 2:38 PM CDT 01/12/2018 2:40 PM CDT us Yana Robles MD LAB - MICRO GENERAL ORDERABLES Final Result [facility] [address] [place] [address], [facility] [id number] [place] [id number] from Last 3 Months or Most Recently Relevant to Health Maintenance Care Teams Telegraphic Instrument Supervisor Relationship Specialty Start Date End Date Dia Ellison APRN COUNTY MANAGER PCP - General Family Medicine 10/23/20
--- OUTSIDE RECORDS SUMMARY | 2024-08-29 12:53 | XMS_ITS | Encounter Summary ---
Author Organization [facility] Address [address] [place] [address] Care Team Providers Care Mainspring Strip Gauger Name Role Phone No Ref-Primary, Physician Primary Care Provider Dia Ellison APRN LABOR GANG SUPERVISOR Primary Care Provider + Dia Ellison APRN LABOR GANG SUPERVISOR Unavailable [phone] Dia Ellison APRN LABOR GANG SUPERVISOR Unavailable [phone] Clinic - [facility] Unavail able Encounter Details Date Type Department Care Team (Late st Contact Info) Description 01/26/2018 [facility] [address] [place] [address] Lissette Levi MD [address] [place] [address] Social History Tobacco Use Types Packs/Day Years Used Date Smoking Tobacco: Every Day Cigarettes 0.5 3 Smokeless Tobacco: Never Alcohol Use Standard Drinks/Week Comments No 0 (1 standard drink = 0.6 oz pur e alcohol) Comments No Sex and Gender Information Value Date Recorded Sex Assigned at Not on file Legal Sex Female 10:11 AM CDT Gender Identity Not on file Sexual Orientation Not on file documented as of this encounter Miscellaneous Notes * Op Note - Lissette Levi MD - 01/26/2018 11:29 AM CDT [facility] Gynecology Operative Note Date of Surgery: 08/10/2012 Patient: Jennifer Tena Preoperative diagnosis: Complete molar , desire for LARC Post-operative diagnosis: same Procedure: 1. Suction Dilation and Curettage 2. Mirena IUD placement Surgeon: Lissette Levi MD Anesthesia: MAC Findings: Anteverted uterus consistent with a 20 week intrauterine , copious products of conception Specimen: products of conception Indications: Jennifer Tena is a 17 year old female who presented with US confirmed molar and beta HCG of 158,445, GA 15w1d. She has had little bleeding or cramping and has not passed any tissue. She was counseled on options as well as risks and benefits of the procedure and preferred definite treatment with suction dilation and curettage. Procedure: The patient was taken to the OR where a patient safety time out was performed and anesthesia was administered without difficulty. She was placed in the dorsal lithotomy position with yellow fin stirrups. Exam under anesthesia reveal the above findings. The patient was prepped and draped in usual sterile fashion. 100mg of doxycycline and 10u of pitocin were administered intra-op. A speculum was introduced into the vagina and used to visualize the cervix. A single-toothed tenaculum was used to grasp the anterior lip of the cervix in a horizontal fashion. A paracervical block was performed with an additional 18cc of 1% lidocaine injected at the four and eight o'clock positions of the cervico- vaginal junction. Dilators were then used to dilate the cervix to 9cm. An 9cm curved curette was then introduced into the cavity after checking for adequate suction. The intrauterine contents were removed via suction without difficulty. A sharp curettage was then performed with a gritty texture appreciated throughout the cavity. The uterine contents were sent to pathology. The uterus was then sounded to 9.5cm and the mirena IUD was placed fundally in the usual fashion. Instruments were then removed with excellent hemostasis was noted at the tenaculum sites after application of silver nitrate. The patient tolerated the procedure well. The instrument and sponge counts were correct x 2. The patient went to the recovery room in stable condition. Lissette Levi MD Obstetrics and Gynecology documented in this encounter Plan of Treatment Not on file documented as of this encounter Visit Diagnoses Not on filedocumented in this encounter Care Teams Mainspring Strip Gauger Relationship Specialty Start Date End Date No Ref-Primary, Physician PCP - General 01/12/18 10/22/20 Dia Ellison APRN LABOR GANG SUPERVISOR PCP - General Family Medicine 10/23/20 Dia Ellison APRN LABOR GANG SUPERVISOR [address] [place] [id number] Assigned PCP 09/26/20 09/25/22 Dia Ellison APRN LABOR GANG SUPERVISOR Assigned PCP 12/05/22 10/22/23 [facility] - [address] [id number] Assigned PCP 11/04/23 12/02/23 documented as of this encounter
--- NOTE | 2024-08-29 13:00 | CRLHL7_ITS ---
For Patients: As a result of the Century Cures Act, medical imaging exams and procedure reports are released immediately into your electronic medical record. You may view this report before your referring provider. If you have questions, please contact your health care provider. INDICATION: First trimester scan, establish dates. TECHNIQUE: Real-time hurley-scale imaging of the pelvis was performed. FINDINGS: Sonographic imaging demonstrates a single living intrauterine gestation. The embryo demonstrates a regular cardiac rate measuring 173 beats per minute. The embryo`s crown-rump length measurement of 2.2 cm corresponds to a gestational age of 8 weeks 6 days with a sonographic due date of 04/04/2025 . There may be a moderate to large subchorionic hemorrhage measuring 8.9 x 4.8 x 1.1 centimeters with heterogeneous hypoechoic appearance surrounding half of the gestational sac. The yolk sac measures 4-5 millimeters slightly prominent. Bilateral ovarian cysts measuring 3 centimeters on the right and 2.8 centimeters on left. IMPRESSION: 1. Early intrauterine gestation at 8 weeks 6 days with LATRICE of 04/04/2025. Heterogeneous hypoechoic areas surrounding half of the gestational sac measuring approximately 8.9 x 4.8 x 1.1 centimeters could represent a moderate to large subchorionic hemorrhage. The yolk sac is prominent measuring 4-5 millimeters would recommend follow-up imaging. Dictated by Layla Carranza MD @ 08/30/2024 9:27:19 AM (Electronically Signed)
== END 2024-08-29 12:51 | disposition home or self-care (01) ==
LOC: US 12:51
PROVIDERS: PCP Family Medicine; Visit Provider Advanced Practice Midwife
DX: Z34.91 Encounter for supervision of normal pregnancy, unspecified, first trimester (principal); Z3A.08 8 weeks gestation of pregnancy
CPT/HCPCS: 76817

== ENCOUNTER 2024-08-29 13:59 | Outpatient (CLI) | payer OTHER, SELFPAY ==
--- OUTSIDE RECORDS SUMMARY | 2024-08-29 14:02 | XMS_ITS | Clinical Summary ---
Author Organization [place] Address [address] [place] [address] Care Team Providers Care Ocean Export Coordinator Name Role Phone Rozinagarcía Dia PINTO PUBLISHING SPECIALIST Primary Care Provider + Allergies No known [...] PM CDT Pulse 70 10/22/2020 5:07 PM RHEOLOGIST Temperature 37.1 C (98.8 F) 03/19/2023 10:11 PM CDT Respiratory Rate 16 03/19/2023 10:11 PM CDT Oxygen Saturation 97% 03/19/2023 10:11 PM CDT Inhaled Oxygen Concentration - - Weight 81.6 kg (180 lb) 10/22/2020 5:07 PM RHEOLOGIST Height 170.2 cm (5' 7) 10/22/2020 5:07 PM RHEOLOGIST Body Mass Index 28.19 10/22/2020 5:07 PM RHEOLOGIST Plan of Treatment Health Maintenance Due Date [...] QUANT AND GENOTYPE Routine 10/22/2020 5:52 PM RHEOLOGIST Need for hepatitis C screening test CHLAMYDIA TRACHOMATIS PCR Routine 01/12/2018 2:38 PM CDT , incidental HIV ANTIGEN ANTIBODY COMBO Routine 01/12/2018 2:38 PM CDT , incidental from Last 3 Months or Most Recently Relevant to Health Maintenance Results * Hepatitis C Screen Reflex to HCV RNA Quant and Genotype (10/22/2020 5:52 PM RHEOLOGIST) Hepatitis C Antibody Nonreactive NR^Nonre active 10/23/2020 3:18 PM RHEOLOGIST [facility] Comment: Assay performance characteristics have not been established for newborns, infants, and children Blood specimen (specimen) 10/22/2020 5:52 PM RHEOLOGIST 10/22/2020 5:53 PM RHEOLOGIST Dia Ellison APRN PUBLISHING SPECIALIST LAB - BLOOD ORDERABLES F inal Result Performing Organization Address City/[facility]/ZIP Co de Phone Number [facility] [address] [place] [address] * HIV Antigen Antibody Combo (01/12/2018 2:38 PM CDT) Pathologist [facility] HIV Antigen Antibody Combo Nonreactive NR^Nonrea ctive 01/13/2018 1:05 PM CDT [facility] Comment:HIV-1 p24 Ag & HIV-1 /HIV-2 Ab Not Detected Blood specimen (specimen) 01/12/2018 2:38 PM CDT 01/12/2018 2:39 PM CDT Yana Robles MD LAB - BLOOD ORDERABLES Final Re sult Performing Organization Address [facility] [[email or web address]] Co de Phone Number [address] * Chlamydia trachomatis PCR (01/12/2018 2:38 PM CDT) Pathologist [facility] Specimen Description Urine 01/12/2018 2:40 PM CDT [facility] Chlamydia Trachomatis PCR Negative NEG^Negat geraldo 01/13/2018 12:51 PM CDT [facility] Comment: Negative for C. trachomatis rRNA by extraction supervisor mediated amplification. A negative result by extraction supervisor mediated amplification does not preclude the presence of C. trachomatis infection because results are dependent on proper and adequate collection, absence of inhibitors, and sufficient rRNA to be detected. Urine specimen (specimen) 01/12/2018 2:38 PM CDT 01/12/2018 2:40 PM CDT us Yana Robles MD LAB - MICRO GENERAL ORDERABLES Final Result [facility] [address] [place] [address], [facility] [id number] [place] [id number] from Last 3 Months or Most Recently Relevant to Health Maintenance Care Teams Ocean Export Coordinator Relationship Specialty Start Date End Date Dia Ellison APRN PUBLISHING SPECIALIST PCP - General Family Medicine 10/23/20
--- OUTSIDE RECORDS SUMMARY | 2024-08-29 14:02 | XMS_ITS | Referral Summary ---
Author Organization [place] Address [address] [place] [address] Care Team Providers Care Tool And Production Planner Name Role Phone Rozinagarcía Dia PINTO DISTANCE LEARNING COORDINATOR Primary Care Provider + Allergies No known [...] PM CDT Pulse 70 10/22/2020 5:07 PM YARD MOTOR OPERATOR Temperature 37.1 C (98.8 F) 03/19/2023 10:11 PM CDT Respiratory Rate 16 03/19/2023 10:11 PM CDT Oxygen Saturation 97% 03/19/2023 10:11 PM CDT Inhaled Oxygen Concentration - - Weight 81.6 kg (180 lb) 10/22/2020 5:07 PM YARD MOTOR OPERATOR Height 170.2 cm (5' 7) 10/22/2020 5:07 PM YARD MOTOR OPERATOR Body Mass Index 28.19 10/22/2020 5:07 PM YARD MOTOR OPERATOR Plan of Treatment Not on file Procedures Procedure Name Priority Date/Time Associated Diagnosis Comments HEPATITIS C SCREEN REFLEX TO HCV RNA QUANT AND GENOTYPE Routine 10/22/2020 5:52 PM YARD MOTOR OPERATOR Need for hepatitis C screening test CHLAMYDIA TRACHOMATIS PCR Routine 01/12/2018 2:38 PM CDT , incidental HIV ANTIGEN ANTIBODY COMBO Routine 01/12/2018 2:38 PM CDT , incidental from Last 3 Months or Most Recently Relevant to Health Maintenance Results * Hepatitis C Screen Reflex to HCV RNA Quant and Genotype (10/22/2020 5:52 PM YARD MOTOR OPERATOR) Hepatitis C Antibody Nonreactive NR^Nonre active 10/23/2020 3:18 PM YARD MOTOR OPERATOR [facility] Comment: Assay performance characteristics have not been established for newborns, infants, and children Blood specimen (specimen) 10/22/2020 5:52 PM YARD MOTOR OPERATOR 10/22/2020 5:53 PM YARD MOTOR OPERATOR us Dia Ellison APRN, CNP LAB - BLOOD ORDERABLES F inal Result Performing Organization Address City/[facility]/ZIP Co de Phone Number [facility] [address] [place] [address] * HIV Antigen Antibody Combo (01/12/2018 2:38 PM CDT) HIV Antigen Antibody Combo Nonreactive NR^Nonrea ctive 01/13/2018 1:05 PM CDT [facility] Comment:HIV-1 p24 Ag & HIV-1 /HIV-2 Ab Not Detected Blood specimen (specimen) 01/12/2018 2:38 PM CDT 01/12/2018 2:39 PM CDT us Yana Robles MD LAB - BLOOD ORDERABLES Final Re sult [facility] [address] * Chlamydia trachomatis PCR (01/12/2018 2:38 PM CDT) Specimen Description Urine 01/12/2018 2:40 PM CDT [facility] Chlamydia Trachomatis PCR Negative NEG^Negat geraldo 01/13/2018 12:51 PM CDT [facility] Comment: Negative for C. trachomatis rRNA by belt picker mediated amplification. A negative result by belt picker mediated amplification does not preclude the presence of C. trachomatis infection because results are dependent on proper and adequate collection, absence of inhibitors, and sufficient rRNA to be detected. Urine specimen (specimen) 01/12/2018 2:38 PM CDT 01/12/2018 2:40 PM CDT us aYna Robles MD LAB - MICRO GENERAL ORDERABLES Final Result Performing Organization Address City/State/[facility] Co de Phone Number [facility] [address] [place] [address], [facility] [id number] [place] [phone] from Last 3 Months or Most Recently Relevant to Health Maintenance Care Teams Tool And Production Planner Relationship Specialty Start Date End Date Dia Ellison APRN CNP PCP - General Family Medicine 10/23/20
--- OUTSIDE RECORDS SUMMARY | 2024-08-29 14:02 | XMS_ITS | Encounter Summary ---
Author Organization [place] Address [address] [place] [address] Care Team Providers Care Branch Logistics Supervisor Name Role Phone No Ref-Primary, Physician Primary Care Provider Dia Ellison APRN LOG PEELER Primary Care Provider + Dia Ellison APRN LOG PEELER Unavailable [phone] Dia Ellison APRN LOG PEELER Unavailable [phone] Clinic - [facility] Unavail able Encounter Details Date Type Department Care Team (Late st Contact Info) Description 01/26/2018 [facility] [address] [place] [address] Lissette Levi MD [address] [place] [address] Social History Tobacco Use Types Packs/Day Years [...] Levi MD - 01/26/2018 11:29 AM CDT [facility] Gynecology Operative Note Date of Surgery: 08/10/2012 [...] on filedocumented in this encounter Care Teams Branch Logistics Supervisor Relationship Specialty Start Date End Date No Ref-Primary, Physician PCP - General 01/12/18 10/22/20 Dia Ellison APRN LOG PEELER PCP - General Family Medicine 10/23/20 Dia Ellison APRN LOG PEELER [address] [place] [place] [id number] Assigned PCP 09/26/20 09/25/22 Dia Ellison APRN LOG PEELER Assigned PCP 12/05/22 10/22/23 [facility] - [address] [phone] Assigned PCP 11/04/23 12/02/23 documented as of this encounter
--- OUTSIDE RECORDS SUMMARY | 2024-08-29 14:02 | XMS_ITS | Encounter Summary ---
Author Organization [place] Address [address] [place] [address] Care Team Providers Care Gang Tailer Name Role Phone Dia Ellison APRN, CNP Primary Care Provider + Dia Ellison APRN TRENCH DIGGER HELPER Unavailable [phone] Dia Ellison APRN TRENCH DIGGER HELPER Unavailable [phone] Clinic - [facility] Unavail able Encounter Details Date Type Department Care Team (Late st Contact Info) Description 07/30/2022 [facility] Medical Advice [facility] Information [facility] [address] [facility] [address] [place] [address] [facility] Social History Tobacco Use Types Packs/Day Years [...] on filedocumented in this encounter Care Teams Gang Tailer Relationship Specialty Start Date End Date Dia Ellison APRN CNP PCP - General Family Medicine 10/23/20 Dia Ellison APRN CNP [address] [place] [phone] Assigned PCP 09/26/20 09/25/22 Dia Ellison APRN [facility] Assigned PCP 12/05/22 10/22/23 [facility] - [address] [address] Assigned PCP 11/04/23 12/02/23 documented as of this encounter
== END 2024-08-29 14:00 | disposition home or self-care (01) ==
PROVIDERS: PCP Family Medicine; Visit Provider Advanced Practice Midwife
DX: Z34.91 Encounter for supervision of normal pregnancy, unspecified, first trimester (principal); Z3A.09 9 weeks gestation of pregnancy
CPT/HCPCS: 83021; 84443; 86592; 86703; 86704; 86706; 86762; 86787; 86803; 86850; 86900; 86901; 87086; 87340

== ENCOUNTER 2024-11-17 12:56 | Outpatient (CLI) | payer OTHER, SELFPAY ==
--- NOTE | 2024-11-17 13:00 | CRLHL7_ITS ---
For Patients: As a result of the 21st Century Cures Act, medical imaging exams and procedure reports are released immediately into your electronic medical record. You may view this report before your referring provider. If you have questions, please contact your health care provider. OB ULTRASOUND SURVEY LMP: 06/25/2024. LATRICE by LMP: 04/01/2025. GA: 20 w, 5 d. INDICATION: Anatomy. TECHNIQUE: Real time grayscale imaging of the fetus was performed. Evaluate anatomy. Transabdominal. position: Vertex. Cervix: Visualized. Technique: Transabdominal. Length of closed cervix: 3.2 cm. Placenta/cord: Posterior. Technique: Transabdominal. Placenta tip to internal OS: 7.6 cm. Umbilical Cord: 3-vessel cord. Placenta insertion: Central. Amniotic Fluid: 3.8 cm SDP (greater than/equal to: 2- less than 8 cm). SURVEY: Observed Structures. Calvarium/Spine: Cerebellum: 2.3 cm, 22 w 3 d. Cisterna Magna: 5.8 mm. Nuchal Fold: 4.4 mm. Lateral Ventricle: 4.0 mm. CSP: Yes. Midline Falx: Yes. Choroid Plexus: Yes. Spine: Yes. Abdomen: Stomach: Yes. Abd Cord Insertion: Yes. Urinary Bladder: Yes. Kidneys: Yes. Diaphragm: Yes. Face: Nose/lips: Yes. Orbital view: Yes. Profile: Yes. Limbs: Upper Extremities: Yes. Lower Extremities: Yes. Hands: Yes. Feet: Yes. Vascular: 4-Chamber Heart: See impression. LVOT: RVOT: See impression. 3VV: See impression. 3VTV: See impression. BPD: 4.7 cm. 20 w, 2 d, 31.9 percent. HC: 17.8 cm. 20 w, 2 d, 23.3 percent. AC: 16.4 cm. 21 w, 3 d, 67.9 percent. FL: 3.4 cm. 20 w, 3d, 33.7 percent. FL/AC ratio: 20.44 percent. HC/AC ratio: 1.09. heart rate: 152 bpm. age by this US: 21 w, 0 d. LATRICE by this US: 03/30/2025. EFW: 386.3 g. Weight: 14 oz. Percentile by LATRICE: 56.5 percent. IMPRESSION: 1. Concordance of clinical and sonographic dating. 2. Bilateral renal pelviectasis measuring 4.7 mm on the right and 2.4 mm on the left. Follow-up in the third trimester recommended. 3. Incomplete visualization of the four-chamber heart, RVOT, three-vessel view and three-views trachea view due to position. Short-term follow-up recommended. 4. The cervix was not fully evaluated as the patient declined transvaginal imaging. David Velazquez M.D. Diagnostic Radiologist [employer] [facility] [email or web address]/Dictated by: David Velazquez MD @ 11/17/2024 3:59:00 PM (Electronically Signed)
== END 2024-11-17 12:57 | disposition home or self-care (01) ==
LOC: US 12:56
PROVIDERS: PCP Family Medicine; Visit Provider Advanced Practice Midwife
DX: Z34.92 Encounter for supervision of normal pregnancy, unspecified, second trimester (principal); O35.BXX0 Maternal care for other (suspected) fetal abnormality and damage, fetal cardiac anomalies, not applicable or unspecified; Z3A.20 20 weeks gestation of pregnancy
CPT/HCPCS: 76805

== ENCOUNTER 2025-01-23 13:11 | Outpatient (CLI) | payer OTHER, SELFPAY | END 2025-01-23 13:12 | disposition home or self-care (01) | LOC: NFLDREF 01-26 16:51 | PROVIDERS: PCP Family Medicine; Referring Provider Family Medicine; Visit Provider Advanced Practice Midwife | DX: Z34.83 Encounter for supervision of other normal pregnancy, third trimester (principal) | CPT/HCPCS: 86592 ==

== ENCOUNTER 2025-01-30 08:20 | Outpatient (CLI) | payer OTHER, SELFPAY | END 2025-01-30 08:21 | disposition home or self-care (01) | LOC: NFLDREF 02-01 02:18 | PROVIDERS: PCP Family Medicine; Referring Provider Family Medicine; Visit Provider Advanced Practice Midwife | DX: O99.810 Abnormal glucose complicating pregnancy (principal); Z3A.28 28 weeks gestation of pregnancy | CPT/HCPCS: 82951; 82952 ==

== ENCOUNTER 2025-02-27 12:28 | Outpatient (CLI) | payer OTHER, SELFPAY | END 2025-02-27 12:29 | disposition home or self-care (01) | LOC: NFLDREF 03-06 18:21 | PROVIDERS: PCP Family Medicine; Referring Provider Family Medicine; Visit Provider Midwife | DX: O99.013 Anemia complicating pregnancy, third trimester (principal); D64.9 Anemia, unspecified; Z3A.35 35 weeks gestation of pregnancy | CPT/HCPCS: 82728 ==

== ENCOUNTER 2025-03-07 11:59 | Outpatient (CLI) | payer OTHER, SELFPAY | END 2025-03-07 12:00 | disposition home or self-care (01) | LOC: NFLDREF 03-09 15:27 | PROVIDERS: PCP Family Medicine; Referring Provider Family Medicine; Visit Provider Advanced Practice Midwife | DX: O09.93 Supervision of high risk pregnancy, unspecified, third trimester (principal); O24.410 Gestational diabetes mellitus in pregnancy, diet controlled; O99.013 Anemia complicating pregnancy, third trimester; Z3A.36 36 weeks gestation of pregnancy | CPT/HCPCS: 87081; 87086; 87653 ==

== ENCOUNTER 2025-03-16 11:30 | Outpatient (RCR) | payer OTHER, SELFPAY ==
--- NOTE | 2025-03-07 12:21 | ONC.NURNOTE ---
Diagnosis: Iron Deficiency Anemia in
[2025-03-16 11:50] VITALS: BP 118/69; PULSE 82; TEMP 36.8; O2SAT 98
[2025-03-16] MEDS: IRON DEXTRAN COMPLEX 25 MG in 0.9 % SODIUM CHLORIDE 100 ml 100 ML 402 MG IVPB (12:32)
[2025-03-16 12:50] VITALS: BP 103/69; PULSE 65; RESP 16; TEMP 36.8; O2SAT 98
[2025-03-16] MEDS: IRON DEXTRAN COMPLEX 975 MG in 0.9 % SODIUM CHLORIDE 250 ml 250 ML 269.5 MG IVPB (13:22)
== END 2025-09-12 23:59 | disposition home or self-care (01) ==
LOC: CCIC 11:30
PROVIDERS: PCP Family Medicine; Visit Provider Clinical Nurse Specialist
DX: O99.013 Anemia complicating pregnancy, third trimester (principal); D50.9 Iron deficiency anemia, unspecified
CPT/HCPCS: 96365; 96366; J1750; J7050

== ENCOUNTER 2025-04-04 01:15 | Inpatient (IN) | payer OTHER, SELFPAY ==
[2025-04-04] VITALS (51 sets, daily range): BP systolic 93–120; BP diastolic 55–77; PULSE 55–80; RESP 16–17; TEMP 36.8–37.1; O2SAT 81–100; BMI 30.7
[2025-04-04 01:40] LABS: Basophils Percent Auto 0.1 % (0.0-3.0); Eosinophils Percent Auto 0.3 % (0.0-7.0); Hematocrit 31.5 % (33.0-51.0); Hemoglobin* 10.4 gm/dL (12.0-16.0); Immature Granulocytes Pct Auto 1.1 %; Mean Corpuscular HGB Conc 33 gm/dL (32-36); Mean Corpuscular Hemoglobin 30 pg (26-34); Mean Corpuscular Volume 90 fL (80-100); Neutrophils Percent Auto 74.5 % (42.0-72.0); Platelet Count* 235 K/uL (140-440); RDW Coefficient of Variation % 16.8 % (11.5-15.5); Red Blood Count 3.51 m/uL (4.00-5.20); White Blood Count* 12.83 K/uL (4.50-11.00)
[2025-04-04 01:41] LABS: Slide Review Reflex No
[2025-04-04] MEDS: LACTATED RINGERS 1000 ML 1,000 ML 1200 ML IV (01:45)
[2025-04-04] MEDS: ROPIVACAINE 0.2% 100 ml 100 ML 12 MG EPIDURAL (02:07)
[2025-04-04] MEDS: LIDOCAINE 2% (PF) 5 ML VIAL EPIDURAL (02:07)
[2025-04-04] MEDS: fentaNYL 100 MCG/2 ML inj EPIDURAL (02:08)
--- NOTE | 2025-04-04 02:12 | W.PM.LDBA ---
Subjective History of Present Illness Date Seen: 04/04/25 Narrative: Patient is being admitted to Labor and Delivery for spontaneous onset of labor. She is a 24 year old at 40 3/7 weeks gestation. Her full history and physical was dictated by Phillip Apple CNM on 03/28/2025. Please see this for details. She started ailyn at 2330 and it got very intense quickly. Her Jaden is here supporting her. She wants an epidural abel. She reports no areas of tenderness vulvar or vaginally that may indicated hsv lesions. She has been taking her prophylaxis. Specific Issues/Plans Partner: Abdias Daughter: Ebony It is a boy! REVIEWED GDM, GROWTH US AT 32 WITH RENAL FOLLOW UP AND HEART VIEWS MISSED ON ANATOMY US 02/13/25-Declines. H&P done by Lexx Apple CNM on 03/28/25 # Gestational Diabetes Failed 1hr GTT 160 3hr GTT: 88, 194, 196, 132 ? Nutrition consult: ordered ? Weekly testing starting at 40 weeks? Growth US every 4 weeks starting at 28 weeks: will likely decline unless other indications, reviewed importance/risks of declining ? Delivery recommended 39 0/7-40 6/7 weeks? # Bilateral renal pelviectasis. Right 4.7mm, left 2.4mm. Recommended f/u in 3rd trimester per radiology. M referral declined and uncertain if she will do the repeat US in 3rd trimester. # Incomplete views of heart, RVOT, 3 vessel view, 3 views trachea. Declines short term f/u. Can repeat w/renal f/u. # Cervical length not fully revaluated and transvaginal US declined. # Anemia, 10.2 at 28wks. Will try liquid iron as unable to tolerate pills in the past and increase dietary intake. # Smoker. Wants to quit/cut back but has had difficulty in the past. Discussed ways to help. Encouraged Vitamin C 500 mg daily. # Hx genital herpes. Prophylaxis at 36wks-Valacyclovir 1g daily recommended and Rx'd # Hx Molar Send placenta to pathology # FOB nephew with Trisomy 21. Genetic screening: declines # Bilateral ovarian cysts (Rt 3x2.5x2, Lt 2.8x2.6x2.2) # Prediabetic Hgb A1C 5.7 with NOB labs offered nutrition referral, declined at this time; offered again 11/17 and declines # Limited care, related to home stressors and financial stress Discussed financial resources including MA, WIC, and state assistance COVID: Flu: TDAP: declines RSV: N/A OB - Problem Based A/P Additional Plan (1) Supervision of high risk in third trimester: Status: Acute (2) Anemia affecting : Status: Acute (3) Gestational diabetes: Problem details: GDMA1 Status: Acute (4) Financial difficulty: Status: Acute (5) Other social stressor: Status: Acute (6) Limited care, antepartum: Status: Acute (7) Smoking: Status: Acute (8) Genital herpes: Status: Acute Plan ASSESSMENT:?? 24 at 40 3/7 weeks gestation?? complicated by:??GDMA1, well controlled, Inadequate views of kidney and heart-declined f/u, Bilateral renal pelviectasis, limited care due to social situation, smoker, anemia, hx HSV (taking prophylaxis) Labor type: Spontaneous,Active labor?? Category 1 FHR pattern.??? Labor complicated by: GDMA1?? GBS negative? ?? PLAN:?? 1. Routine intrapartum cares as ordered. Continue with expectant management?? 2. Monitoring per policy, continuous. GDM protocols. 3. Planning medicated . Candidate for epidural as desired. Hastening that as much as possible.??? 4. Patient encouraged to reposition and ambulate to promote physiologic labor and .?? 5. Anticipate ? OB Result Labs Blood Type: A (+) positive Rubella: immune RPR/VDLR: nonreactive GBS Status: negative HBsAG: negative OB Exam Physical Exam Vital signs: Pulse BP Pulse Ox 66 119/72 92 04/04/25 02:11 04/04/25 02:11 04/04/25 02:11 Narrative: Vitals Reviewed Constitutional:? Alert and oriented x3 HEENT:? Normocephalic, atraumatic Neck:? Supple Lungs:? Clear to auscultation bilaterally Heart:? Regular rate and rhythm, no murmur, rub or gallop Abdomen:? Soft, nontender, and gravid. Vertex by Ramon's, confirmed with cervical exam. Extremities:? No edema or erythema Cervix: 7 cm/100%/0 station/vertex, BBOW. No evidence of HSV lesions. NST: 120 bpm/moderate variability/accelerations present/decelerations absent/contractions q 3-4 min
--- NOTE | 2025-04-04 02:19 | P.ANBPRC_ITS ---
[facility] Medical History Hx of herpes genitalis ?Z86.19 - Personal history of other infectious and parasitic diseases (ICD- 10) Lactating mother ?Z39.1 - Encounter for care and examination of lactating mother (ICD-10) Normal vaginal delivery ?O80 - Encounter for full-term uncomplicated delivery (ICD-10) Retained placenta or membranes ?O73.1 - Retained portions of placenta and membranes, without hemorrhage (ICD-10) Family history of Downs syndrome ?Z82.79 - Family history of other congenital malformations, deformations and chromosomal abnormalities (ICD-10) Depression ?F32.A - Depression, unspecified (ICD-10) Genital herpes ?A60.00 - Herpesviral infection of urogenital system, unspecified (ICD-10) Complete molar ?O02.0 - Blighted ovum and nonhydatidiform mole (ICD-10) Surgical History H/O dilation and curettage ?Z98.890 - Other specified postprocedural states (ICD-10) Family History Maternal Grandmother Thyroid disease Osteoporosis Endometriosis Maternal Grandfather Thyroid disease High blood pressure Paternal Grandmother Diabetes Family/Other Coagulation disorder Sister Thyroid disease Social History Narrative: SOCIAL Education: high school Work: unemployed Partner: Abdias Donovanvesta - but not changed name yet: [place] [employer] 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 Culture or denominational beliefs: denies RISK FACTORS Exercise Times/wk: house work Depression/Anxiety: situational with molar SARAH: 2 PHQ 9: 5 Seat Belt Use: Routinely Smoking: pack per day Alcohol/day: Denies while Caffeine: occasionally Drug Use: Denies present, high school used [employer] Chicken Pox: vaccinated MRSA: Denies What is your current living situation?: I presently have a place to live Problems where you live: no known problems In the past 12 months, utilities in danger of being shut off: no In past 12 months, lack of transportation kept you from medical appts, meetings, work, or getting things needed for daily living: no In the past 12 mos, have been you worried that your food would run out before you had money to buy more?: never true In the past 12 mos, the food you bought just didn't last and you didn't have money to buy more?: never true Smoking Status: Current every day smoker How often does anyone, including family, friends and others, physically hurt you : never How often does anyone, including family, friends and others, insult or talk down to you: never How often does anyone, including family, friends and others, threaten you with harm: never How often does anyone, including family, friends and others, scream or curse at you: never Meds Home Medications and Allergies Home Medications ?Medication ?Instructions ?Recorded ?Confirmed ?Type cetirizine 10 mg tablet (Zyrtec) 10 mg PO QDAY PRN 04/04/25 History vit 168-iron 27 mg-folic cap PO 08/29/2403/11 History acid 800 mcg-omega3 235 mg capsule (One-A-Day -1) ascorbic acid (vitamin C) 250 mg 250 mg PO QDAY 04/04/25 History tablet valacyclovir 500 mg tablet 500 mg PO BID PRN Symptomat ic 01/12/25 04/04/25 Rx herpes outbreak 3 days #18 tabs Blood Glucose Meter #1 ea 01/30/25 03/21/25 Rx Test Strips #100 ea 01/30/25 03/21/25 Rx lancets #100 ea 01/30/25 03/21/25 Rx glucose #1 ea 01/31/25 03/21/25 Rx sensor,implantable,continuous with dexamethasone subcutaneous Allergies Allergy/AdvReac Type Severity Reaction Status Date / Time No Known Drug Allergies Allergy Verified 04/04/25 00:02 Results Labs Labs: Laboratory Results - last 24 hr 04/04/25 01:35 WBC 12.83 H RBC 3.51 L Hgb 10.4 L Hct 31.5 L MCV 90 MCH 30 MCHC 33 RDW Coeff of Jacques 16.8 H Plt Count 235 Neut % (Auto) 74.5 H Lymph % (Auto) 16.0 L Runnels % (Auto) 8.0 Eos % (Auto) 0.3 Baso % (Auto) 0.1 Neut # (Auto) 9.60 H Lymph # (Auto) 2.10 Runnels # (Auto) 1.00 H Eos # (Auto) 0.00 Baso # (Auto) 0.00 Abs Immat Gran (auto) 0.10 Imm/Tot Granulo (auto) 1.1 Vital Signs Vital Signs: Last Vital Signs Pulse 63 04/04/25 02:19 BP 115/72 04/04/25 02:19 Pulse Ox 100 04/04/25 02:17 Weight: 91.626 kg Height: 172.72 cm Anesthesia Procedures Epidural Insertion Patient Location: OB Start Time: 01:50 Stop Time: 02:50 Start Date: 04/04/25 Stop Date: 04/04/25 Reason for Block: procedure for pain Patient Position: sitting Performed By: Ginette White Preanesthetic Checklist: IV checked, risks and benefits discussed, monitors and equipment checked, pre-op evaluation, timeout performed and anesthesia consent Prep: chlorhexidine gluconate Monitoring: blood pressure monitoring, continuous pulse oximetry and heart rate Approach: midline Vertebral Space: lumbar (1-5) Epidural Technique: RADHA saline Needle Type: Tuohy needle Injection Technique: continuous catheter (continuous catheter) Needle gauge: 17 Needle Length (cm): 10 cm Needle Insertion Depth (cm): 7 Catheter Gauge: 19 Catheter Type: multi-orifice Catheter at skin depth (cm): 15 Test Dose Result: negative and lidocaine 1.5% with epinephrine 1 to 200,000
[2025-04-04] MEDS: LACTATED RINGERS 1000 ML 1,000 ML 125 ML IV (02:55)
[2025-04-04] MEDS: OXYTOCIN 30 unit/500 ML in NS 30 UNIT/500 ML BAG 300 UNIT IVPB (03:21)
[2025-04-04] MEDS: miSOPROStoL 800 MCG/4 TABLET PR (03:27)
--- NOTE | 2025-04-04 03:42 | W.PM.OBVAGDE ---
OB Procedure Vag Delivery Mother Details Mother Details: The patient is a 24 year-old, 3, Para 2, admitted on 04/04/25 at Days gestation. Admission Date: 04/04/25 Additional Details Amniotic Membrane Status: AROM Amniotic Membrane Rupture Date: 04/04/25 Amniotic Membrane Rupture Time: 02:55 Amniotic Membrane Fluid Description: Clear Analgesia/Anesthesia Type: Epidural Waterbirth: No Pitcoin: No Intrapartal Events: None Labor Onset: 23:00 Complete: 02:59 Pushin:03 Heart: heart tones during second stage were cat 1 when able to trace adequately. Rapid descent. Delivery Details Delivery Date: 04/04/25 Delivery Time: 03:11 Route of delivery: Infant Gender: Male Infant Viability: Alive; Heart Rate Present Position at Delivery: OA Delivery Details: Patient was admitted for active labor and progressed normally. AROM noted at 0255 with clear fluid. Patient was complete at 0259 and pushing at 0303. of a viable male at 0311 in sitting position. His father was assisted in catching him. Vertex delivered OA. No nuchal cord or shoulder. Body delivered easily and without incident. passed to mothers abdomen with a vigorous cry. Cord was clamped and cut at approx 5 minutes when signs of placental seperation began with vaginal bleeding. APGARS were 8 at one minute and 9 at five minutes respectively. Mouth was bulb suctioned. Intact placenta with a 3 vessel cord delivered spontaneously at 0318 with maternal pushing efforts. Fundus firm but recurring uterine atony noted. Vaginal vault swept twice. IV pitocin started. Cytotec given. Large clot removed and recurrent atony seemed to subside. Watching closely. No lacerations identified, but cervical prolapse to introitus noted. QBL 539 cc + 200cc EBL on pad also soaked with large amount of amniotic fluid. Total; 739cc. Mother and baby stable; mother plans to breastfeed. Infant weight pending.? 1 Minute Interval Total Score: 8 5 Minute Interval Total Score: 9 Additional Details Shoulder Dystocia: No Placenta Delivery Time: 03:18 Placental Delivery Description: Spontaneous Procedure Done: Global Blood Loss: 739 (200EBL + 539 QBL) Laceration: None Blood Loss Measurement Type: QBL (+ EBL) Sponge/Need Count Correct: Yes Cord Vessel Description: 3 Vessels Event Summary Status: Mother and infant were stable after delivery. Disposition: floor
--- NOTE | 2025-04-04 08:12 | PM.ANPOST ---
Post Anesthesia Note Post Anesthesia Note Patient seen: Inpatient Respiratory Status: adequate Cardiovascular Status: adequate Mental Status: baseline Pain: adequate Temp: baseline Anesthetic awareness: N/A Complications: none Follow care: none
[2025-04-04] MEDS: IBUPROFEN 600 MG TABLET PO ×3 (08:53→23:11)
[2025-04-04] MEDS: DOCUSATE SODIUM 100 MG CAPSULE PO (08:53)
[2025-04-04] MEDS: ACETAMINOPHEN 500 MG TABLET 1000 MG PO ×2 (11:32→20:24)
[2025-04-05 00:35] VITALS: BP 111/68; PULSE 58; RESP 18; TEMP 36.7; O2SAT 97
[2025-04-05 06:24] LABS: Hemoglobin* 8.8 gm/dL (12.0-16.0)
--- NOTE | 2025-04-05 08:16 | PM.OBDSVD1 ---
DS: Providers Provider Date Seen: 04/05/25 Date of admission: 04/04/25 01:15 Primary care physician: Melani Salinas MD Admitting Clinician: Hamida Canales CNM Attending Physician on discharge: Hamida Canales CNM Date of Discharge: 04/05/25 DS: Diagnosis Discharge Diagnosis (1) Gestational diabetes: Status: Acute Problem details: GDMA1 (2) Prediabetes in mother during : Status: Acute Problem details: HbgA1C 5.7 with NOB labs (3) Genital herpes: Status: Acute (4) Anemia, : Status: Acute (5) care following vaginal delivery: Status: Acute (6) Lactating mother: Status: Acute Exam Narrative: Exam Narrative: GENERAL APPEARANCE:? normal affect, alert, no distress? MOOD:? appropriate? CHEST:? clear to auscultation and percussion? HEART:? regular rate and rhythm? ABDOMEN:? soft, non-tender the uterine fundus is U/2 and is appropriate for the stage of recovery.? PERINEUM:? mild edema of the perineum, there is a intact perineum that is healing well.? EXTREMITIES:? normal and no edema? Const: Vital Signs, click to edit/add: Vital Signs - 24 hr 04/04/25 09:00 04/04/25 12:00 04/04/25 15:55 Temperature 98.6 F 98.8 F 98.5 F Pulse Rate [Pulse Oximeter] 67 67 59 L Respiratory Rate 16 16 16 Blood Pressure [Le ft Arm] 106/74 110/67 110/67 Blood Pressure [Ri ght Arm] 93/55 L Pulse Oximetry 96 96 98 Oxygen Delivery Me thod Room Air 04/04/25 20:25 04/05/25 00:35 Temperature 98.3 F 98.1 F Pulse Rate [Pulse Oximeter] 58 L Respiratory Rate 17 18 Blood Pressure [Le ft Arm] Blood Pressure [Ri ght Arm] 107/66 111/68 Pulse Oximetry 99 97 Oxygen Delivery Me thod Room Air Room Air Documenting provider has reviewed patient's vital signs: yes OB - DS: Summary Hospital Course Hospital Course: Jennifer is a 24 y.o. G 3 P 2 who was admitted to [facility] for spontaneous labor. ?She had a NVD that was uncomplicated. The patient feels well. ?The pain is well controlled with current medications. ?She has no new complaints. ?She is breast feeding and reports things are going ok. Encouraged her to work with to improve latch and for reassurance. the patient has done well.? Vitals have been stable.? She has remained afebrile.? Has a good appetite, is tolerating a general diet. ?She is voiding without difficulty.? She is passing gas and has not had a bowel movement.? She is ambulating and denies any dizziness.? Has small amount of rubra lochia. She is planning Mirena IUD for prevention. She declines 2hr GTT in the hospital. It is recommended for to complete at her PP visit. Hemoglobin today is 8.8. Denies feeling lightheaded or dizzy. Will continue her oral iron supplement. She is also requesting a refill be sent for her Valtrex for genital herpes outbreaks. Problems: [] Peripartum Data Infant delivery method: Vaginal Laceration description: None Episiotomy description: None complications: none Infant Gender: Male Infant Discharge Plan: Home Status at Discharge Functional status at discharge: independent ambulation Overall status at discharge: patient is progressing back to baseline Time Spent with Patient Time attestation: Total time spent providing and/or coordinating discharge services: Discharge Plan Discharge Disposition: Home, Self-Care Date of Admission: 04/04/25 01:15 Attending Provider on Discharge: Grace Cao Primary Care Provider: Melani Salinas Condition: Stable Anticipated Discharge Date/Time: 04/05/25 11:00 Discharge Medications: New docusate sodium 100 mg Capsule 100 mg PO DAILY Qty: 120 0RF Rx Instructions: Take 1-2 tablets daily as needed for constipation. ibuprofen 600 mg Tablet 600 mg PO Q6H PRNQty: 60 0RF ferrous sulfate 325 mg (65 mg iron) tablet 325 mg PO Q OTHER DAY Qty: 90 0RF Continued cetirizine [Zyrtec] 10 mg tablet 10 mg PO QDAY PRN One-A-Day -1 27 mg iron- 800 mcg-235 mg capsule PO ascorbic acid (vitamin C) 250 mg tablet 250 mg PO QDAY valacyclovir 500 mg tablet 500 mg PO BID PRN (Reason: Symptomatic herpes outbreak) 3 Days Qty: 18 1RF Rx Instructions: Take two times a day for 3 days at the onset of symptoms. Discontinued (DME) glucose sensor,implant-dexamet Device See Rx Instructions .Route Qty: 1 0RF Rx Instructions: As directed (DME) Test Strips Misc See Rx Instructions .MEDSUPPLY Qty: 100 3RF Rx Instructions: Test blood sugar 4 times daily. (DME) lancets Misc See Rx Instructions .MEDSUPPLY Qty: 100 3RF Rx Instructions: Test blood sugar 4 times daily. (DME) Blood Glucose Meter Misc See Rx Instructions .MEDSUPPLY Qty: 1 0RF Rx Instructions: As directed Discharge Orders: Discharge Order (Routine); Ordered 04/05/25 Ordered By: Grace Cao Patient Education: OB Over the Counter Medication Information, OB Vaginal/Breast Feeding Additional Instructions: Discharge instructions were reviewed with the patient including signs and symptoms of infection and home going medications.? Lifting Restrictions: 20 pounds for 6? weeks? ?? Do not drive while taking narcotic pain meds.? Off Work or School for 6 weeks.? ?? Symptoms to report to doctor:? -Bleeding that saturates more than one pad per hour? -Passing clots larger than the size of a golf ball? -Pain not relieved by prescribed medication? -Fever above 100.4 degrees Fahrenheit? -A foul vaginal odor? -Difficulty in emotions, mood and functions? -Thoughts of hurting yourself and/or ? -Painful, reddened area in your breast? -Any drainage, redness or tenderness in your IV/epidural site? -Severe headache that doesn't improve after taking medications? -Changes in vision, including temporary loss of vision, blurred vision, and/or light sensitivity? -Upper abdominal pain (usually under ribs on the right side)? -Decrease in urination or painful, frequent urinating? -Chest pain? -Shortness of breath? -Tenderness or pain with redness and/swelling in the calf(s) of your leg? ?? Follow Up in clinic in 2 and 6 weeks.? ?? consultation services are available to all mothers and babies for the first year after delivery.? To make an appointment, please call [phone].? Activity Level: Activity as Tolerated Discharge Diet: Regular Follow Up Appointments: [facility] [Provider Group] Forms: MyHealth Info Instructions
[2025-04-05 08:32] VITALS: BP 101/63; PULSE 61; RESP 18; TEMP 36.6; O2SAT 97
[2025-04-05] MEDS: DOCUSATE SODIUM 100 MG CAPSULE PO (09:56)
[2025-04-05] MEDS: IBUPROFEN 600 MG TABLET PO (09:56)
[2025-04-05 14:40] LABS: Rapid Plasma Reagin (RPR) Non Reactive (Non Reactive)
== END 2025-04-05 12:00 | disposition home or self-care (01) | DRG 806 ==
LOC: OB OUT 03:30 → OB 03:30
PROVIDERS: Admitting Provider Midwife; PCP Family Medicine; Visit Provider Midwife
DX: O24.420 Gestational diabetes mellitus in childbirth, diet controlled (principal); O98.32 Other infections with a predominantly sexual mode of transmission complicating childbirth; Z37.0 Single live birth; A60.00 Herpesviral infection of urogenital system, unspecified; O62.2 Other uterine inertia; O99.334 Smoking (tobacco) complicating childbirth; F17.210 Nicotine dependence, cigarettes, uncomplicated; O99.02 Anemia complicating childbirth; D64.9 Anemia, unspecified; Z59.9 Problem related to housing and economic circumstances, unspecified; Z65.9 Problem related to unspecified psychosocial circumstances; Z3A.40 40 weeks gestation of pregnancy
CPT/HCPCS: 01967; 36415; 82962; 85018; 85025; 86592; 86850; 86900; 86901; A9270; J2795; J3010; J7120

== ENCOUNTER 2025-05-16 14:45 | Outpatient (CLI) | payer OTHER, SELFPAY ==
[2025-05-21 08:51] LABS: Pap Test Digital Imaging Done
== END 2025-05-16 14:46 | disposition home or self-care (01) ==
LOC: FRMREF 14:47
PROVIDERS: PCP Family Medicine; Visit Provider Midwife
DX: Z39.2 Encounter for routine postpartum follow-up (principal)
CPT/HCPCS: 87624; 87625; 88141; 88142; 88175